=== PATIENT | female | born 1945 | race Caucasian/White ===

== ENCOUNTER 2017-10-26 20:14 | Emergency (ER) | payer OTHER ==
[~2017-10-26] VITALS: Ht 167.6 cm; Wt 67.1 kg
[2017-10-26] MEDS ORDERED: PYRIDIUM200 MG PO (23:35)
[2017-10-26] MEDS ORDERED: CIPRO500 MG PO (23:35)
== END 2017-10-26 23:33 | disposition home or self-care (01) ==
LOC: ER 20:14
DX: N39.0 Urinary tract infection, site not specified (principal)

== ENCOUNTER → 2017-10-29 | Emergency (ER) | payer OTHER ==
[~2017-10-29] MED LIST: CIPRO500 MG PO; PYRIDIUM200 MG PO
== END | disposition left against medical advice (07) ==
LOC: ER 08:49
DX: Z53.20 Procedure and treatment not carried out because of patient's decision for unspecified reasons (principal)